=== PATIENT | female | born 1945 | race Caucasian/White ===

== ENCOUNTER 2021-12-01 12:00 | Inpatient (IN) | payer MEDICARE ==
[~2021-12-01] VITALS: Ht 157.5 cm; Wt 128.4 kg
[2021-12-06 11:16] VITALS: BP 173/84
[2021-12-06] MEDS ORDERED: AEC81 PO (12:17)
[2021-12-06] MEDS ORDERED: SULF1TAB42 PO (12:17)
[2021-12-06] MEDS ORDERED: NITR0.4T50 SL (12:17)
[2021-12-06] MEDS ORDERED: DICY10CA13 PO (12:17)
[2021-12-06] MEDS ORDERED: GABA-529 PO (12:17)
[2021-12-06] MEDS ORDERED: CELE200 PO (12:17)
[2021-12-07] VITALS (35 sets, daily range): BP systolic 107–176; BP diastolic 59–99
[2021-12-07] MEDS ORDERED: 0.9%NACL 1000ML 1,000 ML IV ONE (05:40)
[2021-12-07] MEDS ORDERED: IOHEXOL 350 MG/ML 100ML INFUS..BTL IV ONE (06:45)
[2021-12-07] MEDS ORDERED: HEPARIN 10,000 UNIT/10ML (1,000 UNIT/ML) VIAL ONE ×3 (06:45→08:46)
[2021-12-07] MEDS ORDERED: MEPERIDINE-PF 25 MG/ML SYG ONE (07:20)
[2021-12-07] MEDS ORDERED: MIDAZOLAM HCL 1 MG/ML 2ML VIAL ONE (07:21)
[2021-12-07] MEDS ORDERED: ROCURONIUM 10MG/1ML SYR 10 MG/ML ML ONE (07:32)
[2021-12-07] MEDS ORDERED: SUCCINYLCHOLINE 200MG/10ML SYR ONE (07:32)
[2021-12-07] MEDS ORDERED: PROPOFOL 10 MG/ML 20ML VIAL IV ONE (07:33)
[2021-12-07] MEDS ORDERED: EPHEDRINE SULFATE 50 MG/ML AMPULE ONE (07:33)
[2021-12-07] MEDS ORDERED: ONDANSETRON 4MG INJ IV PRN (10:00)
[2021-12-07] MEDS ORDERED: ACETAMINOPHEN 325 MG TAB PO PRN (10:00)
[2021-12-07] MEDS ORDERED: MORPHINE 4 MG SYG IV PRN (10:00)
[2021-12-07] MEDS ORDERED: MORPHINE 5 MG/ML VIAL (5MG OR GREATER DOSE) IV PRN (10:00)
[2021-12-07] MEDS ORDERED: NITROGLYCERIN 0.4 MG SL TAB SL PRN (10:00)
[2021-12-07] MEDS ORDERED: CEFAZOLIN SODIUM 1 GM VIAL ONE (10:13)
[2021-12-07] MEDS: 0.9%NACL 1000ML 1,000 ML IV SCH ×2 (11:12→20:02)
[2021-12-07] MEDS ORDERED: GABAPENTIN 100 MG CAPSULE ONE (11:43)
[2021-12-07] MEDS: SULFAMETHOX-TMP DS 800/160 TAB PO SCH ×2 (11:46→22:17)
[2021-12-07] MEDS ORDERED: HYDROMORPHONE 1 MG INJ IVP PRN (12:00)
[2021-12-07] MEDS ORDERED: ACETAMINOPHEN 500 MG TABLET PO PRN (12:00)
[2021-12-07] MEDS ORDERED: GABAPENTIN 100 MG CAPSULE PO SCH (12:00)
[2021-12-07] MEDS ORDERED: KETOROLAC 15MG/ML VIAL (15MG/ML) IV PRN (12:00)
[2021-12-07] MEDS ORDERED: PHARMACY COMMUNICATION MISC SCH (12:30)
[2021-12-07] MEDS: DICYCLOMINE HCL 20 MG TAB PO SCH ×2 (13:04→21:08)
[2021-12-07] MEDS: CEFAZOLIN SODIUM 1 GM VIAL IVP SCH (17:56)
[2021-12-07] MEDS ORDERED: CEFAZOLIN SODIUM 2 GM VIAL IVP SCH (18:00)
[2021-12-07] MEDS: GABAPENTIN 100 MG CAPSULE PO SCH (21:09)
[2021-12-08] VITALS (19 sets, daily range): BP systolic 105–171; BP diastolic 55–92
[2021-12-08] MEDS: CEFAZOLIN SODIUM 1 GM VIAL IVP SCH (01:52)
[2021-12-08 03:56] LABS: HEMATOCRIT 33.6 % (36-48); MEAN CORPUSCULAR HEMOGLOBIN 29.5 pg (27.0-33.0); MEAN CORPUSCULAR HGB CONC 32.4 g/dL (32.0-36.0); MEAN CORPUSCULAR VOLUME 91.1 fL (79-99); RED BLOOD CELL COUNT(AUTO) 3.69 MIL/uL (4.00-5.50); RED CELL DISTRIBUTION WIDTH 13.6 % (11.0-15.5); WHITE BLOOD COUNT (AUTO) 8.4 K/uL (4.8-10.8)
[2021-12-08 04:03] LABS: CREATININE 0.7 mg/dL (0.5-1.5); POTASSIUM 4.6 mmol/L (3.5-5.1)
[2021-12-08] MEDS ORDERED: CELECOXIB 200 MG CAP PO SCH (09:00)
[2021-12-08] MEDS ORDERED: ASPIRIN 81 MG EC TAB PO SCH (09:00)
[2021-12-08] MEDS: GABAPENTIN 100 MG CAPSULE PO SCH (09:12)
[2021-12-08] MEDS: SULFAMETHOX-TMP DS 800/160 TAB PO SCH (09:12)
[2021-12-08] MEDS: DICYCLOMINE HCL 20 MG TAB PO SCH (09:27)
== END 2021-12-08 11:23 | disposition home or self-care (01) | DRG 253 ==
LOC: EDSTATUS 12:00 → EDUNIT# 12:00 → DAHIP 12-07 05:34 → 2CH 12-07 10:20
PROVIDERS: ADMIT Internal Medicine; ATTEND Internal Medicine
PROC: B4101ZZ Fluoroscopy of Abdominal Aorta using Low Osmolar Contrast (ICD-10-PCS; principal; 2021-12-07)
PROC: 04QK4ZZ Repair Right Femoral Artery, Percutaneous Endoscopic Approach (ICD-10-PCS; 2021-12-07)
PROC: 04Q Lower Arteries, Repair (ICD-10-PCS; 2021-12-07)
PROC: B41C1ZZ Fluoroscopy of Pelvic Arteries using Low Osmolar Contrast (ICD-10-PCS; 2021-12-07)
PROC: 04U00JZ Supplement Abdominal Aorta with Synthetic Substitute, Open Approach (ICD-10-PCS; 2021-12-07)
DX: I71.40 Abdominal aortic aneurysm, without rupture, unspecified (principal); Z68.43 Body mass index [BMI] 50.0-59.9, adult; I11.0 Hypertensive heart disease with heart failure; I25.10 Atherosclerotic heart disease of native coronary artery without angina pectoris; I50.9 Heart failure, unspecified; M19.90 Unspecified osteoarthritis, unspecified site; E66.01 Morbid (severe) obesity due to excess calories; Z96.649 Presence of unspecified artificial hip joint; Z96.659 Presence of unspecified artificial knee joint; Z95.5 Presence of coronary angioplasty implant and graft; Z82.49 Family history of ischemic heart disease and other diseases of the circulatory system; Z98.51 Tubal ligation status
CPT/HCPCS: 34705; 34713; 36415; 71045; 74174; 80048; 85027; 85347; 86850; 86900; 86901; 86923; 97039; A4344; C1725; C1760; C1769; C1887; C1894; G0378; J0330; J0690; J1170; J1644; J1885; J2175; J2250; J2270; J2405; J2704; J3490; J7030; Q9967